=== PATIENT | female | born 1970 | race African-American/Black ===

== ENCOUNTER → 2019-12-29 | Outpatient (CLI) | payer BC | LOC: LAB 13:55 | PROVIDERS: ATTEND Hospitalist | DX: Z20.828 Contact with and (suspected) exposure to other viral communicable diseases (principal) ==

== ENCOUNTER → 2020-02-21 | Outpatient (CLI) | payer BC | LOC: LAB 11:57 | PROVIDERS: ATTEND Family Medicine | DX: U07.1 COVID-19 (principal) ==